=== PATIENT | female | born 1935 | race Hispanic/Latino ===

== ENCOUNTER 2016-10-16 15:10 | Outpatient (CLI) | payer MEDICARE ==
[2016-10-16 15:40] LABS: Basophils % (Auto) 1.3 % (0.0-1.8); Eosinophils % (Auto) 5.6 % (0.0-4.3); Hematocrit 33.5 % (30.3-42.9); Hemoglobin 10.7 gm/dl (10.1-14.3); Mean Corpuscular HGB Conc 32 % (30-34); Mean Corpuscular Hemoglobin 28 pg (28-32); Mean Corpuscular Volume 87 fl (79-97); Platelet Count 213 K/mm3 (140-440); Red Blood Count 3.85 M/mm3 (3.65-5.03); Red Cell Distribution Width 16.3 % (13.2-15.2); White Blood Count 8.4 K/mm3 (4.5-11.0)
[2016-10-16 16:01] LABS: Albumin 3.7 g/dL (3.9-5); BUN/Creatinine Ratio 15.71; Calcium 8.4 mg/dL (8.4-10.2); Chloride 102.7 mmol/L (98-107); Phosphorous 3.5 mg/dL (2.5-4.5); Potassium 4.7 mmol/L (3.6-5.0)
== END 2016-10-16 15:11 | disposition home or self-care (01) ==
LOC: LAB 15:10
PROVIDERS: ATTEND Internal Medicine Nephrology
DX: I12.9 Hypertensive chronic kidney disease with stage 1 through stage 4 chronic kidney disease, or unspecified chronic kidney disease (principal); N18.3 Chronic kidney disease, stage 3 (moderate); E11.22 Type 2 diabetes mellitus with diabetic chronic kidney disease; N25.81 Secondary hyperparathyroidism of renal origin; M12.9 Arthropathy, unspecified; E87.5 Hyperkalemia; R60.0 Localized edema
CPT/HCPCS: 36415; 80048; 82040; 84100; 85025; 89050

== ENCOUNTER 2017-05-13 12:23 | Outpatient (CLI) | payer MEDICARE ==
[2017-05-13 12:52] LABS: Hematocrit 34.4 % (30.3-42.9); Hemoglobin 11.4 gm/dl (10.1-14.3); Mean Corpuscular HGB Conc 33 % (30-34); Mean Corpuscular Hemoglobin 28 pg (28-32); Mean Corpuscular Volume 85 fl (79-97); Platelet Count 229 K/mm3 (140-440); Red Blood Count 4.06 M/mm3 (3.65-5.03); Red Cell Distribution Width 16.4 % (13.2-15.2)
[2017-05-13 13:23] LABS: Albumin 4.2 g/dL (3.9-5); Calcium 8.9 mg/dL (8.4-10.2)
[2017-05-13 13:38] LABS: Creatinine,Urine 30.1 mg/dL (0.1-20.0); Protein/Creatinine Ratio,Urine 0.2
== END 2017-05-13 12:24 | disposition home or self-care (01) ==
LOC: LAB 12:23
PROVIDERS: ATTEND Internal Medicine
DX: I12.9 Hypertensive chronic kidney disease with stage 1 through stage 4 chronic kidney disease, or unspecified chronic kidney disease (principal); N18.3 Chronic kidney disease, stage 3 (moderate); E11.22 Type 2 diabetes mellitus with diabetic chronic kidney disease; L03.818 Cellulitis of other sites; N25.81 Secondary hyperparathyroidism of renal origin; M12.9 Arthropathy, unspecified; E87.5 Hyperkalemia; R60.0 Localized edema
CPT/HCPCS: 36415; 80048; 82040; 82570; 84100; 84156; 85027

== ENCOUNTER 2017-12-26 15:26 | Outpatient (CLI) | payer MEDICARE ==
[2017-12-26 16:00] LABS: Calcium 8.7 mg/dL (8.4-10.2); Uric Acid 7.9 mg/dL (3.5-7.6)
== END 2017-12-26 15:27 | disposition home or self-care (01) ==
LOC: LAB 15:26
PROVIDERS: ATTEND Internal Medicine Nephrology
DX: N18.3 Chronic kidney disease, stage 3 (moderate) (principal)
CPT/HCPCS: 36415; 80048; 82040; 84100; 84550

== ENCOUNTER 2018-04-22 13:25 | Outpatient (CLI) | payer MEDICARE ==
[2018-04-22 13:51] LABS: Hematocrit 33.7 % (30.3-42.9); Mean Corpuscular HGB Conc 33 % (30-34); Mean Corpuscular Volume 83 fl (79-97); Platelet Count 436 K/mm3 (140-440); Red Blood Count 4.05 M/mm3 (3.65-5.03); Red Cell Distribution Width 15.8 % (13.2-15.2)
[2018-04-22 13:55] LABS: Bilirubin,Urine NEG (Negative); Blood,Urine NEG (Negative); Color,Urine Yellow (Yellow); Protein,Urine <15 mg/dL mg/dL (Negative); Urobilinogen,Urine < 2.0 mg/dL (<2.0)
[2018-04-22 14:02] LABS: Creatinine,Urine 96.1 mg/dL (0.1-20.0); Protein/Creatinine Ratio,Urine 0.19
[2018-04-22 14:15] LABS: Albumin 3.3 g/dL (3.9-5); Calcium 8.8 mg/dL (8.4-10.2)
== END 2018-04-22 13:26 | disposition home or self-care (01) ==
LOC: LAB 13:25
PROVIDERS: ATTEND Internal Medicine Nephrology
DX: I12.9 Hypertensive chronic kidney disease with stage 1 through stage 4 chronic kidney disease, or unspecified chronic kidney disease (principal); E11.22 Type 2 diabetes mellitus with diabetic chronic kidney disease; N18.3 Chronic kidney disease, stage 3 (moderate); M12.9 Arthropathy, unspecified; E87.5 Hyperkalemia; R60.0 Localized edema; N25.81 Secondary hyperparathyroidism of renal origin
CPT/HCPCS: 36415; 80048; 81001; 82040; 82570; 84100; 84156; 85027

== ENCOUNTER 2018-10-27 11:35 | Outpatient (CLI) | payer MEDICARE ==
[2018-10-27 12:14] LABS: Bacteria,Urine 1+ /HPF (Negative); Bilirubin,Urine NEG (Negative); Blood,Urine NEG (Negative); Color,Urine Yellow (Yellow); Urobilinogen,Urine < 2.0 mg/dL (<2.0)
[2018-10-27 12:38] LABS: Calcium 8.6 mg/dL (8.4-10.2)
[2018-10-27 14:36] LABS: Creatinine,Urine 144.4 mg/dL (0.1-20.0); Microalbumin/Creatinine Ratio 67.1 ug/mg
== END 2018-10-27 11:36 | disposition home or self-care (01) ==
LOC: LAB 11:35
PROVIDERS: ATTEND Internal Medicine
DX: I12.9 Hypertensive chronic kidney disease with stage 1 through stage 4 chronic kidney disease, or unspecified chronic kidney disease (principal); E11.22 Type 2 diabetes mellitus with diabetic chronic kidney disease; N18.3 Chronic kidney disease, stage 3 (moderate); N25.81 Secondary hyperparathyroidism of renal origin; E87.5 Hyperkalemia; R60.0 Localized edema; R33.9 Retention of urine, unspecified; M12.9 Arthropathy, unspecified
CPT/HCPCS: 36415; 80048; 81001; 82040; 82043; 84100

== ENCOUNTER 2019-01-21 14:42 | Outpatient (CLI) | payer MEDICARE ==
[2019-01-21 15:36] LABS: Albumin 3.7 g/dL (3.9-5); Calcium 8.6 mg/dL (8.4-10.2)
== END 2019-01-21 14:43 | disposition home or self-care (01) ==
LOC: LAB 14:42
PROVIDERS: ATTEND Internal Medicine Nephrology
DX: L03.90 Cellulitis, unspecified (principal); I12.9 Hypertensive chronic kidney disease with stage 1 through stage 4 chronic kidney disease, or unspecified chronic kidney disease; N18.3 Chronic kidney disease, stage 3 (moderate); R60.9 Edema, unspecified
CPT/HCPCS: 36415; 80048; 82040; 84100